=== PATIENT | female | born 1960 | race Caucasian/White ===

== ENCOUNTER → 2017-11-12 13:54 | Outpatient (CLI) | payer BC, SELFPAY ==
--- NOTE | 2017-11-12 14:04 | XR_ITS ---
XR hip RT 2-3V w/pelvis HISTORY: Right hip pain ITS.REASON: HLP,HYPOTHYROIDISM,RT HIP PAIN ORDERING PHYSICIAN: Umair Le MD PATIENT AGE: 57 years COMPARISON: None FINDINGS: There are severe osteoarthritic changes of the right hip loss of joint space and osteosclerosis with subarticular cystic changes of the acetabular roof and right femoral head. There are mild dysplastic changes of the femoral head with flattening of the femoral head. There is lateral subluxation of the femoral head is well by approximately 12 mm with widening of the right hip joint space. A triangular-shaped density is present lateral to the acetabulum measuring 7 mm and could be due to an old avulsion fracture There is been prior fusion at the lumbosacral junction. Surgical clips are present pelvis. IMPRESSION: Severe osteoarthritis of the right hip with subarticular cystic changes and mild lateral subluxation of the femoral head x 12 mm with dysplastic changes of the femoral head with flattening flattening
[2017-11-12 15:31] LABS: Alanine Aminotransferase 25 U/L (12-78); Albumin Level 4.2 gm/dL (3.4-5.0); Albumin/Globulin Ratio 1.2 (1.1-1.8); Alkaline Phosphatase 166 U/L (46-116); Aspartate Amino Transferase 18 U/L (15-37); Bilirubin,Total 1.1 mg/dL (0.2-1.0); Blood Urea Nitrogen 17 mg/dL (7-18); Calcium 9.5 mg/dL (8.5-10.1); Carbon Dioxide 28 mmol/L (21.0-32.0); Chloride 102 mmol/L (98-107); Chol/HDL Ratio 3.6 (1-3.5); Cholesterol 148 mg/dL (140-200); Creatinine,Serum 0.69 mg/dL (0.55-1.02); Estimated Glomerular Filt Rate 87 ml/min (>60); GFR (African American) 105 ML/MIN (>60); Globulin 3.5 gm/dl (1.3-3.2); Glucose 96 mg/dL (74-106); HDL Cholesterol 41 mg/dL (29-89); LDL Cholesterol 83 mg/dL (0-130); Sodium 141 mmol/L (136-145); T4 (Thyroxine) 9.2 ug/dl (4.7-13.3); Total Protein,Serum 7.7 gm/dL (6.4-8.2); Triglycerides 121 mg/dL (30-200); VLDL Cholesterol 24 mg/dL (0-40)
== END ==
PROVIDERS: Visit Provider Family Medicine
DX: E78.5 Hyperlipidemia, unspecified (principal); E03.9 Hypothyroidism, unspecified; M25.551 Pain in right hip
CPT/HCPCS: 36415; 73502; 80053; 80061; 84436; 84443

== ENCOUNTER → 2017-11-17 11:58 | Outpatient (REF) | payer BC, SELFPAY | LOC: LAB 11:58 | PROVIDERS: Visit Provider Podiatrist | DX: B35.1 Tinea unguium (principal) | CPT/HCPCS: 87102; 87206; 87220 ==

== ENCOUNTER → 2018-02-03 11:09 | Outpatient (CLI) | payer BC, SELFPAY ==
--- NOTE | 2018-02-03 11:17 | XR_ITS ---
XR chest 2V HISTORY: Cough, ITS.REASON: COUGH DUE TO SEASONAL ALLERGIES ORDERING PHYSICIAN: Umair Le MD PATIENT AGE: 57 years COMPARISON: None FINDINGS: The heart size is unremarkable. There is moderate tortuosity of the thoracic aorta. The lungs are well expanded and free of acute infiltrate. Minimal nodularity noted in the right infrahilar region and may be due to overlapping vessels or a granuloma. Mild degenerative change thoracic spine. IMPRESSION: As above, no acute finding
== END ==
PROVIDERS: PCP Family Medicine; Visit Provider Family Medicine
DX: Z01.818 Encounter for other preprocedural examination (principal)
CPT/HCPCS: 71046; 93005

== ENCOUNTER 2018-04-07 14:00 | Outpatient (RCR) | payer BC, SELFPAY | END 2018-04-07 14:01 | disposition home or self-care (01) | LOC: PT 14:00 | PROVIDERS: Visit Provider Orthopaedic Surgery | DX: Z96.641 Presence of right artificial hip joint (principal); M25.551 Pain in right hip | CPT/HCPCS: 97110; 97163 ==

== ENCOUNTER → 2019-02-01 20:41 | Outpatient (CLI) | payer BC, SELFPAY | PROVIDERS: Visit Provider Podiatrist | DX: B35.1 Tinea unguium (principal) | CPT/HCPCS: 87102; 87206; 87220 ==

== ENCOUNTER → 2019-10-30 09:15 | Outpatient (CLI) | payer BC, SELFPAY ==
[2019-10-30 09:22] LABS: Microscopic, Urine URINE MICROSCOPIC (MICROSCOPIC)
--- NOTE | 2019-10-30 09:49 | ECG_ITS ---
APPROVED REPORT Exam: Resting ECG HR:77 bpm ECG Measurements Heart Rate 77 AXES WI 136 P 46 QRSd 90 QRS 54 QT 378 T 47 QTc 427 <Conclusion> Normal sinus rhythm Normal ECG Electronically signed by : Kristofer Fofana, 11/01/2019 06:49:26
[2019-10-30 09:57] LABS: Activated Partial Thrombo Time 26.2 seconds (23.6-34.0); INR 0.96 (0.9-1.1)
[2019-10-30 09:59] LABS: Appearance,Urine CLEAR (Clear); Bilirubin,Urine Negative (Negative); Blood, Urine TRACE-L (Negative); Color,Urine YELLOW (Yellow); Glucose,Urine (UA) Negative (Negative); Ketones,Urine Negative (Negative); Leukocyte Esterase,Urine Negative (Negative); Nitrate,Urine Negative (Negative); Protein,Urine Negative (Negative); Specific Gravity, Urine 1.025 (1.005-1.030); Urobilinogen,Urine 0.2 EU/dl (0.2)
--- NOTE | 2019-10-30 10:00 | XR_ITS ---
PROCEDURE: XR CHEST 2V Patient Age:59Y CLINICAL HISTORY: COUGH, nonsmoker cough PRE-OP COMPARISON: CXR2V XR chest 2V from 02/03/2018 FINDINGS: PA and lateral chest. Lungs are clear with nothing definitely acute. Prominent tortuous ascending aorta again noted and may reflect history of underlying hypertension.. Aortic arch is on the left and does not appear to be dilated. Superior mediastinum appears unchanged since 2018. Hilar regions appear stable. The heart is normal in size but there is normal pulmonary vascularity. Chest wall in T-spine appear intact stable. No focal infiltrate or pneumonia evident.. Scattered tiny calcified granulomas within lung dobbs and hilar regions bilaterally reflect old granulomatous disease-stable. IMPRESSION: Stable chest with nothing definitely acute. Lungs clear, with no consolidation or focal pneumonia evident. Prominent tortuous, ectatic Ascending Aorta is again noted unchanged since 2018.-May reflect history of underlying hypertension Dictated by: Fredy Chan MD 10/30/2019 14:03 Electronically signed by Fredy Chan MD in [place] 10/30/2019 14:03
[2019-10-30 10:20] LABS: Amorphous Sediment,Urine 1+ /lpf; Transitional Epi Cells,Urine OCC #/lpf (0-3); WBC,Urine Occasional #/hpf (0-3)
[2019-10-30 10:34] LABS: Basophils # 0.1 K/mm3 (0-0.2); Basophils % 1.1 % (0.1-2.0); Eosinophils # 0.2 K/mm3 (0.0-0.4); Eosinophils % 3.5 % (0.1-12.0); Hematocrit 40.5 % (37.0-47.0); Hemoglobin 12.9 g/dL (12.2-16.2); Lymphocytes # 1.8 K/mm3 (0.7-4.5); Lymphocytes % 27.4 % (10-50); Mean Corpuscular HGB Conc 31.9 g/dL (31.8-35.4); Mean Corpuscular Hemoglobin 27.9 pg (27.0-31.2); Mean Corpuscular Volume 87.4 fl (81-99); Mean Platelet Volume 7.8 fl (7.4-10.4); Monocytes # 0.4 K/mm3 (0.1-1.0); Monocytes % 6.1 % (1.7-9.3); Neutrophils # 3.9 K/mm3 (1.8-7.8); Neutrophils % 61.9 % (37.0-80.0); Platelet Count 432 K/mm3 (142-424); Red Blood Count 4.64 M/mm3 (4.20-5.40); Red Cell Distribution Width 13.5 % (11.5-17.5); White Blood Count 6.4 K/mm3 (4.8-10.8)
[2019-10-30 11:13] LABS: Chloride 101 mmol/L (98-107); Potassium 4.5 mmoL/L (3.5-5.1); Sodium 138 mmol/L (136-145)
[2019-10-30 11:15] LABS: Alanine Aminotransferase 24 U/L (12-78); Aspartate Amino Transferase 24 U/L (14-36); Blood Urea Nitrogen 19 mg/dl (7-17); Estimated Glomerular Filt Rate 102 ml/min (>60); GFR (African American) 123 ML/MIN (>60)
[2019-10-30 11:16] LABS: Albumin Level 4.1 g/dl (3.5-5.0); Albumin/Globulin Ratio 1.4 (1.1-1.8); Alkaline Phosphatase 104 U/L (38-126); Anion Gap 12.5 mEq/L (5-15); Bilirubin,Total 0.4 mg/dl (0.2-1.3); Calcium 9.2 mg/dl (8.4-10.2); Carbon Dioxide 29 mmol/L (22.0-30.0); Globulin 2.9 g/dL (1.3-3.2); Glucose 105 mg/dl (74-100)
[2019-10-30 11:34] LABS: Hemoglobin A1C 6.1 % (4.0-6.0)
[2019-10-31 11:47] LABS: Prealbumin 26 mg/dL (10-36)
== END ==
PROVIDERS: Visit Provider Family Medicine
DX: Z01.818 Encounter for other preprocedural examination (principal)
CPT/HCPCS: 36415; 71046; 80053; 81001; 83036; 84134; 85025; 85610; 85730; 93005

== ENCOUNTER 2020-01-05 09:30 | Outpatient (RCR) | payer BC, SELFPAY | END 2020-01-05 09:35 | disposition home or self-care (01) | LOC: PT 09:30 | PROVIDERS: PCP Family Medicine; Visit Provider Orthopaedic Surgery | DX: M25.552 Pain in left hip (principal); Z96.642 Presence of left artificial hip joint | CPT/HCPCS: 97110; 97116; 97140; 97163; 97164; 97530 ==

== ENCOUNTER → 2020-10-20 15:43 | Outpatient (CLI) | payer BC, SELFPAY | PROVIDERS: Visit Provider Internal Medicine Gastroenterology | DX: Z01.812 Encounter for preprocedural laboratory examination (principal); Z11.52 Encounter for screening for COVID-19; Z13.810 Encounter for screening for upper gastrointestinal disorder; Z12.11 Encounter for screening for malignant neoplasm of colon | CPT/HCPCS: U0003 ==

== ENCOUNTER 2020-10-23 11:25 | Day surgery (SDC) | payer BC, SELFPAY ==
[2020-10-17 14:42] VITALS: BMI 39.0
[2020-10-23 11:49] VITALS: BP 145/80; PULSE 89; RESP 18; TEMP 36.1; O2SAT 95
--- NOTE | 2020-10-23 12:53 | P.PN_ITS ---
[facility] Anesthesia Checklist - Patient Identification Patient Identification: Arm Band - Structural Data Admitted From: Home Planned Operative Procedure/s: Colonoscopy Consent for Planned Operative Procedure(s) Verified: Yes - NPO Status Verified Time NPO: 00:00 - Airway Assessment C-Spine Mobility Assessed: Yes TMJ Mobility Assessed: Yes Dentition: Good Dentition - Neurological Assessment Level of Consciousness: Awake Hx Seizures: No Numbness or tingling in extremities: No - Anesthesia Plan Anesthesia Risk discussed: Yes Anesthesia Plan: Verified ASA Class: III Anesthesia Type: MAC [facility] History I have reviewed the patient's past medical history: Yes Medical History: Reports:: Cancer (colorectal, uterine,), Gastroesophageal Reflux Disease(GERD), Hyperlipidemia Denies:: Diabetes Mellitus Type 1, Diabetes Mellitus Type 2, Internal Pacemaker, MRSA, Seizures *Have you ever received a pneumonia vaccine?: Yes *Have you received a flu vaccine this season?: Yes Other Medical History: Reports: Hypothyroidism Anesthesia experience/problems:: NOne Laterality Cases: Bilateral: Total Hip Replacement Other Surgeries: Yes: Cancer Surgery, Hysterectomy-Total. No: Pacemaker Amputation: No Fractures: No - *Social History Smoking Status: Never smoker Alcohol Intake: never Alcohol Intake Frequency:: other Substance Use Type: denies use *Occupational Status:: retired Housing: house Household Members: spouse *Travel in the last 8 weeks: None Family Hx:: No significant family history
[2020-10-23 13:09] VITALS: O2SAT 100
--- NOTE | 2020-10-23 13:22 | HMH.PROC ---
[facility] Procedure Note Procedure Note:: Upper Endoscopy Procedure Report: Esophagogastroduodenoscopy with cold biopsies Endoscopost: Forrest Whittington II, MD Referring Physician: Everardo Le MD Date of Procedure: October 23, 2020 Equipment: Olympus GIF 190 standard upper endoscope Sedation: MAC sedation Indications: Mrs. 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 She did have colon cancer with resection in December 2004 (Pierce Cotter MD). She also has a history of uterine cancer. She has been followed by Dr. Junior Mendez. She has had EGD every 3 years and colonoscopy every 2 years. Her mother had ovarian/uterine cancer at the age of 53 which was advanced. Her father had colon polyps. The patient reports no abdominal pain or dyspepsia. She does have some chronic GERD for which she takes Prilosec. Procedure: Prior to the procedure, a history and physical exam was performed, and patient's medications and allergies were reviewed. The risks, benefits and alternatives of the sedation and procedure were discussed with the patient. All questions were answered and informed consent was obtained. The patient was brought to the procedure room. Patient identification and proposed procedure were verified by the physician and the nurse. The patient was placed in a left lateral decubitus position and the scope was passed under direct vision. Throughout the procedure, the patient's blood pressure, pulse, and oxygen saturations were monitored continuously. The upper GI endoscopy was accomplished without difficulty. The patient tolerated the procedure well. Findings: The scope was passed directly into the upper esophagus and advanced to the third portion of the duodenum. The post bulbar duodenum and duodenal bulb were normal with normal mucosa and conniventes. The ampulla was inspected carefully and there was no abnormality. The scope was withdrawn through a normal duodenal bulb and pylorus into the stomach. There was mild type a gastritis and biopsies were obtained for H. pylori. There was a single fundic gland polyp that was removed via cold biopsy. Upon retroflexion there was no hiatal hernia. The scope was then withdrawn into the esophagus. There appeared to be some mildly whitish plaque on the surface of the the esophageal mucosa. Biopsies were obtained to rule out candidal esophagitis. There was no evidence of reflux esophagitis or García's. The remainder of the esophageal mucosa was normal. Impression: 1. Possible mild candidal esophagitis 2. Mild chronic gastritis (type a gastritis) 3. Small gastric fundic gland polyp Plan: I will follow-up the biopsies. I would continue surveillance at 3 to 5 years. I will proceed with colonoscopy for screening/surveillance.
--- NOTE | 2020-10-23 13:43 | HMH.PROC ---
[facility] Procedure Note Procedure Note:: Colonoscopy Procedure Report: Colonoscopy with cold snare polypectomy Endoscopist: Forrest Whittington II, MD Referring physician: Everardo Le MD Date of Procedure: October 23, 2020 Equipment: Olympus 190 variable stiffness pediatric colonoscope Sedation: MAC sedation Indication: Mrs. Pappas is a 59-year-old female with Moran syndrome. She does have a history of colon cancer with resection (December 2004 Pierce Cotter MD?colorectal surgery). She also has a history of uterine cancer. Her mother had ovarian/uterine cancer at the age of 53 that was advanced. The patient's last colonoscopy (November 2017) was normal. She was followed for surveillance by Dr. Junior Mendez. Every 2 years. Procedure: Prior to the procedure, a history and physical exam was performed, and patient's medications and allergies were reviewed. The risks, benefits and alternatives of the sedation and procedure were discussed with the patient. All questions were answered and informed consent was obtained. The patient was brought to the procedure room. Patient identification and proposed procedure were verified by the physician and the nurse. The patient was placed in a left lateral decubitus position and the scope was passed under direct vision. Throughout the procedure, the patient's blood pressure, pulse, and oxygen saturations were monitored continuously. The colonoscopy was accomplished without difficulty. The patient tolerated the procedure well. Findings: On digital rectal examination there was normal rectal tone. There were no external hemorrhoids. The colonoscope was introduced through the anal canal to the rectum and advanced to the cecum. The ileocecal valve and appendiceal orifice were identified. The scope was advanced a short distance into the ileum which appeared grossly normal. The scope was then withdrawn into the colon. The cecum, ascending and transverse colon were grossly normal. There was a diminutive 3 mm polyp in the descending colon. There were 3 polyps (5, 5 and 7 mm) in the lower sigmoid adjacent to the site of prior surgery. All 4 of these polyps were removed via cold snare polypectomy. Upon retroflexion within the rectum there were grade 1-2 internal hemorrhoids.The preparation was excellent throughout with [place] Preparation Score of 9. The cecal time was 14 minutes. Impression: 1. Colonic polyps x4 Plan: I will follow up the polyp histology and based upon her personal history of colon cancer and Moran syndrome, I would continue surveillance colonoscopy at a 2-year interval. I will discuss the findings with the patient and family.
[2020-10-23 13:46] VITALS: BP 122/68; PULSE 81; RESP 12; TEMP 36.4; O2SAT 93
[2020-10-23 13:56] VITALS: BP 111/69; PULSE 83; RESP 16; O2SAT 96
[2020-10-23 14:06] VITALS: BP 119/71; PULSE 78; RESP 16; O2SAT 97
[2020-10-23 14:16] VITALS: BP 124/72; PULSE 74; RESP 16; TEMP 36.4; O2SAT 97
== END 2020-10-23 14:16 | disposition home or self-care (01) ==
LOC: OUTP 11:26
PROVIDERS: PCP Family Medicine; Visit Provider Internal Medicine Gastroenterology
PROC: 0DJ08ZZ Inspection of Upper Intestinal Tract, Via Natural or Artificial Opening Endoscopic (ICD-10-PCS; CPT 43235; principal; 2020-10-23 12:30)
DX: K29.30 Chronic superficial gastritis without bleeding (principal); K31.7 Polyp of stomach and duodenum; K22.8 Other specified diseases of esophagus; K63.5 Polyp of colon; Z85.038 Personal history of other malignant neoplasm of large intestine; Z90.49 Acquired absence of other specified parts of digestive tract; Z85.42 Personal history of malignant neoplasm of other parts of uterus; Z80.41 Family history of malignant neoplasm of ovary; Z83.71 Family history of colonic polyps; K21.9 Gastro-esophageal reflux disease without esophagitis; E78.5 Hyperlipidemia, unspecified; E03.9 Hypothyroidism, unspecified; Z12.11 Encounter for screening for malignant neoplasm of colon
CPT/HCPCS: 43239; 45385

== ENCOUNTER → 2021-02-07 14:15 | Outpatient (CLI) | payer BC, SELFPAY ==
[2021-02-07 15:20] LABS: Basophils # 0.1 K/mm3 (0-0.2); Basophils % 0.6 % (0.1-2.0); Eosinophils # 0.1 K/mm3 (0.0-0.4); Eosinophils % 0.6 % (0.1-12.0); Hematocrit 42.6 % (37.0-47.0); Hemoglobin 14.3 g/dL (12.2-16.2); Lymphocytes % 20.8 % (10-50); Mean Corpuscular HGB Conc 33.6 g/dL (31.8-35.4); Mean Corpuscular Hemoglobin 29.7 pg (27.0-31.2); Mean Corpuscular Volume 88.4 fl (81-99); Mean Platelet Volume 8.6 fl (7.4-10.4); Monocytes # 0.5 K/mm3 (0.1-1.0); Monocytes % 5.3 % (1.7-9.3); Neutrophils % 72.7 % (37.0-80.0); Platelet Count 479 K/mm3 (142-424); Red Blood Count 4.81 M/mm3 (4.20-5.40); Red Cell Distribution Width 13.6 % (11.5-17.5); White Blood Count 9.7 K/mm3 (4.8-10.8)
== END ==
PROVIDERS: PCP Family Medicine; Visit Provider Physician Assistant
DX: Z20.822 Contact with and (suspected) exposure to COVID-19 (principal)
CPT/HCPCS: 85025; U0003

== ENCOUNTER 2024-07-14 08:49 | Outpatient (CLI) | payer MEDICARE, SELFPAY ==
--- NOTE | 2024-07-14 08:52 | XR_ITS ---
FINAL REPORT TECHNIQUE: Bone densitometry calculations of the lumbar spine and left hip were obtained. CLINICAL HISTORY: SCREENING COMPARISON: None FINDINGS: Using the left forearm, the bone mineral density of the spine is 0.429 g/cm2, corresponding to T-score of -3.7. Using the right forearm, the bone mineral density of the femoral neck is 0.436 g/cm2, corresponding to a T-score of -3.1. NOTE: T-score: Standard deviation compared with peak bone mass of young adult mean. *Following the recommendations of the International Society of Bone densitometry, classification of hip BMD is based on the lower of two T-scores; total hip or femoral neck. IMPRESSION: Diminished bone mineral density in the forearms bilaterally, consistent with osteoporosis. Reviewed, Interpreted and Dictated by Carlton Mcfarlane MD Transcribed by Marisa Ohara Authenticated and [facility]
== END 2024-07-14 23:59 | disposition home or self-care (01) ==
LOC: RAD 08:49
PROVIDERS: PCP Family Medicine; Visit Provider Family Medicine
DX: Z78.0 Asymptomatic menopausal state (principal)
CPT/HCPCS: 77080

== ENCOUNTER 2024-09-07 10:45 | Outpatient (CLI) | payer MEDICARE, SELFPAY | END 2024-09-07 23:59 | disposition home or self-care (01) | LOC: LAB.DROPOF 09-08 13:29 | PROVIDERS: PCP Nurse Practitioner; Visit Provider Nurse Practitioner | DX: B35.1 Tinea unguium (principal) | CPT/HCPCS: 87102; 87206; 87220 ==

== ENCOUNTER 2025-04-21 09:26 | Day surgery (SDC) | payer MEDICARE, SELFPAY ==
--- NOTE | 2025-04-19 07:28 | EXP.HP ---
History of Present Illness *Admission Date: 04/21/25 *History of present illness: Mrs. Pappas is a 64-year-old female who is here for screening/surveillance colonoscopy. 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 She did undergo low anterior resection (Pierce Cotter MD in December 2004). The patient also has a history of uterine cancer. Her mother had ovarian and uterine cancer at the age of 53. The patient did have a normal colonoscopy in November 2017. Her last colonoscopy with me in October 2020 revealed 4 polyps (tubular adenomas x 4) which were removed. The examination is deemed medically necessary for screening/surveillance colonoscopy. The patient has been seen, interviewed and examined prior to the procedure by both myself and the anesthesia provider. [facility] Disclaimer: The information contained in this section may have been updated after the patient was seen, as this information can be updated by other users. Medical History Osteoporosis GERD (gastroesophageal reflux disease) Seasonal allergies Asthma Diabetes mellitus Hypothyroidism HLD (hyperlipidemia) Colorectal cancer Uterine cancer Surgical History History of back surgery History of total hysterectomy Family History Mother Cancer Father Cancer Hypertension Heart disease Brother Diabetes Heart disease Social History Smoking Status: Never smoker alcohol intake: never substance use type: denies use current occupational status: retired Travel in the last 8 weeks?: Inside the [place] household members: spouse housing: house current occupational exposures/hazards: No caffeine: Yes Have you lived/traveled outside US in past 30 days?: No Contact w/someone who lives/traveled outside US past 30 days?: No Exposure to someone with infectious disease in past 14 days?: No Do you have a fever (greater than 100.4 F or 38 C)?: No Have you tested positive for COVID-19?: No Exposed to someone with COVID-19 in past 14 days?: No Do you have a sore throat?: No Do you have a cough?: No Do you have any weakness?: No Are you experiencing any nausea/vomitting?: No Do you have any diarrhea?: No Are you experiencing any unusual bleeding?: No Do you have any muscle aches/pain?: No Do you have any abdominal pain?: No Are you experiencing loss of taste or smell?: No Other Medical History Have you received the Flu Vaccine for this season: Yes Have you received the Pneumonia Vaccine: No Review of Systems Review of Systems Review of systems (narrative): Negative *Cardiovascular Comments: Negative *Gastrointestinal Comments: Negative *Genitourinary Comments: Negative *Musculoskeletal Comments: Negative *Neurologic Comments: Negative Meds Home Medications and Allergies Home Medications ?Medication ?Instructions ?Recorded ?Confirmed ?Type aspirin 81 mg tablet,delayed 81 mg PO ONCE Blood thinner 11/17/17 04/21/25 History release (Annabella Low Dose Aspirin) atorvastatin 20 mg tablet 20 mg PO ONCE Cholesterol 11/17/17 04/21/25 History calcium 600 mg (as 1 tab PO BID Supplement 11/17/17 04/21/25 History carbonate)-vitamin D3 5 mcg (200 unit) tablet cholecalciferol (vitamin D3) 125 5,000 unit PO ONCE Supplement 11/17/17 04/21/25 History mcg (5,000 unit) capsule coenzyme Q10 75 mg capsule (Ultra 75 mg PO ONCE Supplement 11/17/17 04/21/25 History CoQ10) levothyroxine 50 mcg capsule 50 mcg PO ONCE thyroid 11/17/17 04/21/25 History multivitamin 1 cap PO QAM Supplement 11/17/17 04/21/25 History omeprazole 20 mg capsule,delayed 20 mg PO ONCE GERD 11/17/17 04/21/25 History release montelukast 10 mg tablet 10 mg PO QHS allergies 08/11/19 04/21/25 History ammonium lactate 12 % topical cream 1 applic topical BID dry skin, 09/07/24 04/21/25 Rx callus care 30 days #385 grams ciclopirox 8 % topical solution 1 applic topical DAILY toenail 09/07/24 04/21/25 Rx fungus 3 months #6.6 mL fluconazole 200 mg tablet 200 mg PO DAILY 09/07/24 04/21/25 History sodium,potassium,mag sulfates 17.5 See Rx Instructions PO .COMPLEX 04/07/25 04/19/25 Rx gram-3.13 gram-1.6 gram oral soln #354 mL (Suprep Bowel Prep Kit) trinifenesin 600 mg tablet, 600 mg PO HS 04/19/25 04/21/25 History extended release 12 hr (Mucinex) New Prescriptions to Start Prescriptions: Allergies Allergy/AdvReac Type Severity Reaction Status Date / Time No Known Allergies Allergy Verified 04/21/25 09:50 Exam *Routine HEENT Exam Head: Present normocephalic Eye: Present EOMI and PERRL ENT: Present mucous membranes moist *Routine Neck Exam Neck: Present supple *Routine Respiratory Exam Respiratory: Present CTA bilaterally *Routine Cardiovascular Exam Cardiovascular: Present RRR *Routine Abdominal Exam Abdominal: Present soft and normoactive bowel sounds; Absent tenderness *Routine Rectal Exam Rectal:: deferred *Routine Genitalia Exam Genitalia:: deferred *Routine Extremities Exam Extremities: Absent cyanosis, clubbing or edema *Routine Skin Exam Skin: Present warm; Absent rash *Routine Neurological Exam Neurological: Present alert and oriented X3 Assessment and Plan *Assessment and plan (1) Personal history of colon cancer: Status: Acute Category: Medical Code(s): Z85.038 - Personal history of other malignant neoplasm of large intestine (2) Personal history of adenomatous and serrated colon polyps: Status: Acute Category: Medical Code(s): Z86.0101 - Personal history of adenomatous and serrated colon polyps (3) Moran syndrome: Status: Acute Category: Medical Code(s): Z15.060 - Genetic susceptibility to colorectal cancer; Z15.068 - Genetic susceptibility to other malignant neoplasm of digestive system; Z15.07 - Genetic susceptibility to malignant neoplasm of urinary tract; Z15.09 - Genetic susceptibility to other malignant neoplasm (4) Screening for colon cancer: Status: Acute Category: Medical Code(s): Z12.11 - Encounter for screening for malignant neoplasm of colon Plan A/P: 1. Personal history of colon cancer, Moran syndrome and uterine cancer as well as adenomatous colon polyps is the preprocedural diagnosis. The patient will be anesthetized/sedated using MAC sedation. The patient has been seen and examined. Cardiac and lung assessment prior to the examination is stable. Proceed with planned screening/surveillance colonoscopy.
[2025-04-19 13:10] VITALS: BMI 39.0
--- NOTE | 2025-04-21 06:44 | P.PCN_ITS ---
[facility] Procedure Note Date: 04/21/25 Time: 11:33 Procedure Note:: Colonoscopy Procedure Report: Colonoscopy with cold snare polypectomy Endoscopist: Forrest Whittington II, MD Referring physician: Everardo Le MD Date of Procedure: April 21, 2025 Equipment: Olympus [id number] adult colonoscope Sedation: MAC sedation Indication: Mrs. Pappas is a 64-year-old female who is here for screening/surveillance colonoscopy. 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 She did undergo low anterior resection (Pierce Cotter MD in December 2004). The patient also has a history of uterine cancer. Her mother had ovarian and uterine cancer at the age of 53. The patient did have a normal colonoscopy in November 2017. Her last colonoscopy with ma in October 2020 revealed 4 polyps (tubular adenomas x 4) which were removed. The patient reports no abdominal pain, weight loss, change in her bowel habits or rectal bleeding. The examination is deemed medically necessary for screening/surveillance colonoscopy. Procedure: Prior to the procedure, a history and physical exam was performed, and patient's medications and allergies were reviewed. The risks, benefits and alternatives of the sedation and procedure were discussed with the patient. All questions were answered and informed consent was obtained. The patient was brought to the procedure room. Patient identification and proposed procedure were verified by the physician and the nurse. The patient was placed in a left lateral decubitus position and the scope was passed under direct vision. Throughout the procedure, the patient's blood pressure, pulse, and oxygen saturations were m onitored continuously. The colonoscopy was accomplished without difficulty. The patient tolerated the procedure well. Findings: On digital rectal examination there was normal rectal tone. There were no external hemorrhoids. The colonoscope was introduced through the anal canal to the rectum and advanced to the cecum. The ileocecal valve and appendiceal orifice were identified. The scope was advanced a short distance into the ileum which appeared grossly normal. The scope was then withdrawn into the colon. There were 3 colon polyps (ascending x 1 (8 mm), descending x 1 (5 mm) and rectosigmoid x 1 (3 mm)). These were all removed via cold snare polypectomy. The remaining cecum, ascending, transverse and descending colon and mucosa were grossly normal. There was a normal colocolonic anastomosis from prior LAR. There were no other mucosal abnormalities identified. Upon retroflexion within the rectum there were grade 1 internal hemorrhoids. The preparation was excellent throughout with [place] Preparation Score of 9. The cecal time was 14 minutes. Impression: 1. Colonic polyps x 3 (3, 5 and 8 mm) 2. Normal colocolonic anastomosis (from prior low anterior resection) 3. Grade 1 internal hemorrhoids Plan: I will follow-up the polyp histology and recommend repeat screening/surveillance colonoscopy again in 5 years.
[2025-04-21 09:54] VITALS: BP 155/83; PULSE 88; RESP 18; TEMP 36.1; O2SAT 96
[2025-04-21 10:04] LABS: POC Glucose,Bedside 108 gm/dL (70-110)
[2025-04-21] MEDS: LACTATED RINGERS 1000ML 1,000 ML 50 ML IV (10:05)
--- NOTE | 2025-04-21 10:12 | P.PNANES_ITS ---
[facility] Disclaimer: The information contained in this section may have been updated after the patient was seen, as this information can be updated by other users. Medical History Osteoporosis GERD (gastroesophageal reflux disease) Seasonal allergies Asthma Diabetes mellitus Hypothyroidism HLD (hyperlipidemia) Colorectal cancer Uterine cancer Surgical History History of back surgery History of total hysterectomy Family History Mother Cancer Father Cancer Hypertension Heart disease Brother Diabetes Heart disease Social History Smoking Status: Never smoker alcohol intake: never substance use type: denies use current occupational status: retired Travel in the last 8 weeks?: Inside the [place] household members: spouse housing: house current occupational exposures/hazards: No caffeine: Yes Have you lived/traveled outside US in past 30 days?: No Contact w/someone who lives/traveled outside US past 30 days?: No Exposure to someone with infectious disease in past 14 days?: No Do you have a fever (greater than 100.4 F or 38 C)?: No Have you tested positive for COVID-19?: No Exposed to someone with COVID-19 in past 14 days?: No Do you have a sore throat?: No Do you have a cough?: No Do you have any weakness?: No Are you experiencing any nausea/vomitting?: No Do you have any diarrhea?: No Are you experiencing any unusual bleeding?: No Do you have any muscle aches/pain?: No Do you have any abdominal pain?: No Are you experiencing loss of taste or smell?: No [facility] Anesthesia Checklist Patient Identification Patient Identification: Arm Band and Verbal (Name & ) Structural Data Admitted From: Home Planned Operative Procedure/s: Colonoscopy Consent for Planned Operative Procedure(s) Verified: Yes Verified Documents: Surgical Consent NPO Status Verified Time NPO: 00:00 Chart Verification Results Verified: None Additional verifications Fingerstick Blood Glucose: 108 Patient : No Anesthesia Reactions: No Airway Assessment Mallampati Score:: Class II C-Spine Mobility Assessed: Yes TMJ Mobility Assessed: Yes Dentition: Good Dentition Neurological Assessment Level of Consciousness: Awake, Alert and Appropriate Hx Seizures: No Numbness or tingling in extremities: No Anesthesia Plan Anesthesia Risk discussed: Yes Anesthesia Plan: Verified ASA Class: II Anesthesia Type: MAC
[2025-04-21 11:36] VITALS: BP 90/65; PULSE 74; RESP 16; TEMP 36.2; O2SAT 93
[2025-04-21 11:46] VITALS: BP 110/57; PULSE 78; RESP 16; O2SAT 93
[2025-04-21 11:56] VITALS: BP 102/61; PULSE 78; RESP 16; O2SAT 96
[2025-04-21 12:01] VITALS: BP 132/69; PULSE 76; RESP 18; O2SAT 95
== END 2025-04-21 12:03 | disposition home or self-care (01) ==
PROVIDERS: PCP Family Medicine; Visit Provider Internal Medicine Gastroenterology
PROC: 0DJD8ZZ Inspection of Lower Intestinal Tract, Via Natural or Artificial Opening Endoscopic (ICD-10-PCS; CPT 45378; principal; 2025-04-21 11:00)
DX: Z12.11 Encounter for screening for malignant neoplasm of colon (principal); D12.2 Benign neoplasm of ascending colon; D12.4 Benign neoplasm of descending colon; D12.7 Benign neoplasm of rectosigmoid junction; K64.0 First degree hemorrhoids; E03.9 Hypothyroidism, unspecified; E78.5 Hyperlipidemia, unspecified; M81.0 Age-related osteoporosis without current pathological fracture; Z86.0101 Personal history of adenomatous and serrated colon polyps; Z85.038 Personal history of other malignant neoplasm of large intestine; Z15.060 Genetic susceptibility to colorectal cancer; Z15.068 Genetic susceptibility to other malignant neoplasm of digestive system; Z15.07 Genetic susceptibility to malignant neoplasm of urinary tract; Z15.09 Genetic susceptibility to other malignant neoplasm; Z80.41 Family history of malignant neoplasm of ovary; Z80.49 Family history of malignant neoplasm of other genital organs; Z85.42 Personal history of malignant neoplasm of other parts of uterus; Z79.82 Long term (current) use of aspirin; Z98.0 Intestinal bypass and anastomosis status
CPT/HCPCS: 45385; 82962; 88305; J2003; J2704; J7120